=== PATIENT | female | born 1960 | race Caucasian/White ===

== ENCOUNTER 2017-04-28 20:16 | Inpatient (IN) | END 2017-05-03 13:30 | disposition home or self-care (01) | DRG 375 ==

== ENCOUNTER 2017-11-06 07:38 | Day surgery (SDC) | END 2017-11-06 14:45 | disposition home or self-care (01) ==

== ENCOUNTER 2018-09-24 07:05 | Inpatient (IN) | payer OTHER ==
[2018-09-24] VITALS (33 sets, daily range): BP systolic 111–157; BP diastolic 68–87; PULSE 59–95; RESP 11–20; Ht 165.1 cm; Wt 71.3 kg
[~2018-09-24] VITALS: Ht 165.1 cm; Wt 71.3 kg
[~2018-09-24 07:05] MED LIST: ATOR40TA68 PO; BISO5TAB21 PO; FER325 PO; OMEP40CA6 PO; SERT50TA6 PO
[2018-09-24] MEDS ORDERED: SOD CHLORIDE 0.9% 1,000 ML IV SCH (08:00)
[2018-09-24] MEDS ORDERED: CEFAZOLIN 2 GM/50 ML (PMX) 50 ML IVPB ONE (08:00)
[2018-09-24] MEDS ORDERED: METO10TA3 PO (08:08)
[2018-09-24] MEDS ORDERED: ROCURONIUM 50 MG INJ ONE (09:35)
[2018-09-24] MEDS ORDERED: PROPOFOL 20 ML ONE (09:35)
[2018-09-24] MEDS ORDERED: MIDAZOLAM 1 MG/ML 2 ML INJ ONE (09:35)
[2018-09-24] MEDS ORDERED: CEFAZOLIN 1 GM INJ ONE (09:35)
[2018-09-24] MEDS ORDERED: ONDANSETRON 4 MG INJ ONE (09:44)
[2018-09-24] MEDS ORDERED: KETOROLAC 30 MG INJ ONE (09:44)
[2018-09-24] MEDS ORDERED: BUPIVACAINE 0.25% (MPF) 30 ML INJ ONE (09:55)
--- NOTE | 2018-09-24 10:11 | PREAC ---
Date/Time of Note Date/Time of Note DATE: 09/24/18 TIME: 10:08 Anesthesia Eval and Record Evaluation Time Pre-Procedure Interview DATE: 09/24/18 TIME: 10:08 Age 57 Sex female NPO: 8 hrs Preoperative diagnosis Thyroid Papillary CA Planned procedure Thyroidectomy Past Medical History Past Medical History: Includes Cardio: HTN, Dyslipidemia GI: Obesity, Other (S/P Gastrectomy for Gastric CA) Psych: Depression Surgery & Anesthesia Issues No known issue Meds Anticoagulation: No Beta Arely within 24 hr: No Reason Beta Arely not given: Pt. not on B-Arely Reported Medications Metoclopramide Hcl* (Metoclopramide Hcl*) 10 Mg Tablet, 10 MG PO Q6H PRN for NAUSEA AND OR VOMITING, TAB 09/24/18 Sertraline Hcl* (Sertraline Hcl*) 50 Mg Tablet, 50 MG PO DAILY, #30 TAB 11/06/17 Atorvastatin* (Atorvastatin*) 40 Mg Tablet, 40 MG PO QHS, #30 TAB 11/06/17 Ferrous Sulfate* (Ferrous Sulfate*) 325 Mg Tabec, 325 MG PO BID, TAB 11/06/17 Discontinued Reported Medications Omeprazole* (Omeprazole*) 40 Mg Capsule.dr, 40 MG PO DAILY, #30 CAP 11/06/17 Bisoprolol Fumarate* (Bisoprolol Fumarate*) 5 Mg Tablet, 5 MG PO DAILY, TAB 11/06/17 Current Medications Sodium Chloride 1,000 ml @ 75 mls/hr [id number] IV Last administered on 09/24/18at 08:41; Admin Dose 75 MLS/HR; Start 09/24/18 at 08:00; Stop 09/24/18 at 21:19 Meds reviewed: Yes Allergies Coded Allergies: Sulfa (Sulfonamide Antibiotics) (Verified Allergy, Unknown, 09/24/18) Allergies Reviewed: Yes Labs/Studies Labs Reviewed: Reviewed by anesthesiologist test: N/A Pre-procedure Exam Last vitals Vital Signs Date Temp Pulse Resp B/P (MAP) Pulse Ox O2 O2 Flow FiO2 Time Delivery Rate 09/24/18 97.3 80 16 144/81 96 Room Air 08:35 (102) Airway: Adequate mouth opening Mallampati: Mallampati II Teeth: Normal Lung: Normal Heart: Normal ASA Physical Status ASA physical status: 3 Emergency: None Planned Anesthetic General/MAC: ETT Pre-operative Attestations Prior to commencing anesthesia and surgery, the patient was re-evaluated, there was verification of: *The patient's identity *The results of appropriate recent lab work and preoperative vital signs *The above evaluation not changing prior to induction *Anesthetic plan, risk benefits, alternative and complications discussed with patient/family; questions answered; patient/family understands, accepts and wishes to proceed. SHARIF HYDE MD Sep 24, 2018 10:11
[2018-09-24] MEDS ORDERED: FENTAnyl 50 MCG/ML VIAL IV PRN (10:30)
[2018-09-24] MEDS ORDERED: ONDANSETRON 4 MG INJ IV PRN ×2 (10:30→23:30)
[2018-09-24] MEDS ORDERED: HYDROmorphONE 1 MG/5 ML IV SYRINGE IV PRN (10:30)
[2018-09-24] MEDS ORDERED: NEOSTIGMINE 3 MG/3 ML SYRINGE ONE (11:30)
[2018-09-24] MEDS ORDERED: GLYCOPYRROLATE 0.4 MG INJ ONE (11:30)
--- NOTE | 2018-09-24 11:51 | OPR ---
Date/Time of Note Date/Time of Note DATE: 09/24/18 TIME: 11:47 Operative Report Procedure Date: Sep 24, 2018 Preoperative Diagnosis papillary thyroid cancer Postoperative Diagnosis same Operation/Procedure Performed 1. total thyroidectomy 2. localized adjacent tissue transfer with the use of skin flaps 16 sq cm defect of anterior neck 3. therapeutic injection of subcutaneous local anesthesia Surgeon see signature line Business Analyst Project Manager Jimmy Hunter Anesthesia Type: general Estimated Blood Loss: 10 - 50 ml's Transfusion none Specimen total thyroid markings double short right upper double long right lower single short left upper single long left lower Grafts/Implants none Complications none Pt Condition Post Procedure: stable Indications This is a 57-year-old female with an unfortunate history of gastric cancer. She underwent treatment and chemotherapy. She was diagnosed recently with papillary thyroid cancer. She is here for a total thyroidectomy. Risks alternatives benefits and personal were discussed the patient. Potential complications including but not limited to bleeding infection recurrent laryngeal nerve injury and possible need for additional operations were discussed the patient. Patient expressed understanding and consents to the operation. Procedure Description Patient is taken to the OR and prepped and draped in usual sterile fashion. Surgical time was performed. IV antibiotics given. Collar incision was made to 15 blade. Dissection with cautery was carried down through the platysmal layer. Superior inferior platysmal flaps are created and raised. Escoto retractors were placed. Midline strap muscles were divided. Attention was then paid to the left thyroid. The superior and inferior poles were mobilized. The middle thyroidal vein was ligated with handheld LigaSure. Further dissection was carried laterally. Careful attention was paid to the area of the recurrent laryngeal nerve in this area was dissected meticulously to preserve the nerve. Attention was then paid to the right thyroid. The right thyroid had the thyroid nodule that was firm and had been biopsied with biopsy proven papillary thyroid cancer. This area was adhesive to parts of the strap muscle and was very adhesive to the surrounding tissues. Careful dissection was made in the middle thyroidal vein was divided with handheld LigaSure. The superior and inferior poles were also further mobilized. Further careful dissection was made to keep the recurrent laryngeal nerve out of harm's way. There is a dense amount of adhesions around the nodule. The retro-is small region was then dissected with tonsils. The thyroid was then mobilized off the trachea. Surgical markings of double short right superior double long right inferior single short left upper single long left lower markings were placed. The specimen was sent. The surgical site was irrigated and a Valsalva maneuver of 40 cm of water was held. There is no evidence of any bleeding. All irrigation was suctioned out. The strap muscles were reapproximated with interrupted 3-0 Vicryl. And the platysmal layer was closed with localization just transfer with these of skin flaps. Multilayer closed with interrupted 3-0 Vicryl the platysmal layer and the skin was closed with a running 4-0 Monocryl. Therapeutic subcutaneous local anesthesia was injected at the incision site. Steri-Strips and dry dressings were applied. Jassi NAGEL Sep 24, 2018 11:51
--- NOTE | 2018-09-24 11:52 | PAC ---
Date/Time of Note Date/Time of Note DATE: 09/24/18 TIME: 11:52 Post-Anesthesia Notes Post-Anesthesia Note Last documented vital signs Vital Signs Date Temp Pulse Resp B/P (MAP) Pulse Ox O2 O2 Flow FiO2 Time Delivery Rate 09/24/18 97.3 80 16 144/81 96 Room Air 08:35 (102) Activity: WNL Respiratory function: WNL Cardiovascular function: WNL Mental status: Baseline Pain reasonably controlled: Yes Hydration appropriate: Yes Nausea/Vomiting absent: Yes SHARIF HYDE MD Sep 24, 2018 11:52
[2018-09-24] MEDS ORDERED: morphine 2 MG INJ IV PRN (12:00)
[2018-09-24] MEDS ORDERED: CEFAZOLIN 2 GM/50 ML (PMX) 50 ML IVPB SCH (12:00)
[2018-09-24] MEDS ORDERED: HYDROCODONE/APAP (5/325) TAB PO PRN (12:00)
[2018-09-24] MEDS: SOD CHLORIDE 0.9% 1,000 ML IV SCH ×3 (14:02→23:44)
--- NOTE | 2018-09-24 17:09 | HP ---
Date/Time of Note Date/Time of Note DATE: 09/24/18 TIME: 17:08 Assessment/Plan VTE Prophylaxis Risk score (from Ns)>0 risk: 3 SCD applied (from Ns): Yes Pharmacological prophylaxis: NA/contraindicated Pharm contraindication: surgical contra Lines/Catheters IV Catheter Type (from Nrsg): Peripheral IV Central line still needed: Yes Assessment/Plan Assessment/Plan - Papillary thyroid cancer, s/p total thyroidectomy by Dr. Guerrero. Continue IV fluids and postoperative antibiotics. Monitor calcium level. Advance diet per surgery. Continue [place] and morphine as needed for pain and Zofran as needed for nausea. -Hyperlipidemia, continue statin -Depression, continue Zoloft -Iron deficiency anemia, continue iron supplement -Hypertension, patient currently is normotensive, continue hydralazine as needed -History of gastric adenocarcinoma status post total gastrectomy and chemotherapy Further recommendations based on clinical course. Plan of care discussed with Dr. Harper. Result Diagram: 09/24/18 1327 09/24/18 1327 Results 24hrs Laboratory Tests Test 09/24/18 13:27 White Blood Count 7.8 # Red Blood Count 3.79 L Hemoglobin 11.2 L Hematocrit 33.5 L Mean Corpuscular Volume 88.4 Mean Corpuscular Hemoglobin 29.6 # Mean Corpuscular Hemoglobin Concent 33.4 Red Cell Distribution Width 12.1 # Platelet Count 164 # Mean Platelet Volume 9.3 Immature Granulocytes % 0.300 Neutrophils % 78.8 H Lymphocytes % 15.6 Monocytes % 4.3 Eosinophils % 0.5 Basophils % 0.5 Nucleated Red Blood Cells % 0.0 Immature Granulocytes # 0.020 Neutrophils # 6.2 Lymphocytes # 1.2 Monocytes # 0.3 Eosinophils # 0.0 Basophils # 0.0 Nucleated Red Blood Cells # 0.0 Sodium Level 142 Potassium Level 4.4 Chloride Level 111 H Carbon Dioxide Level 23 Anion Gap 8 Blood Urea Nitrogen 18 Creatinine 0.60 Est Glomerular Filtrat Rate mL/min > 60 Glucose Level 102 Calcium Level 9.0 Total Bilirubin 0.2 Direct Bilirubin 0.00 Indirect Bilirubin 0.2 Aspartate Amino Transf (AST/SGOT) 36 Alanine Aminotransferase (ALT/SGPT) 41 Alkaline Phosphatase 83 Total Protein 6.9 Albumin 4.0 Globulin 2.90 Albumin/Globulin Ratio 1.37 HPI/ROS Admit Date/Time Admit Date/Time Sep 24, 2018 at 11:47 Hx of Present Illness The patient is a 57-year-old female with history of gastric adenocarcinoma status post total gastrectomy in January [address] Hurt at [facility]. Patient underwent chemotherapy last treatment in March [address] Almodovar. Further oncology evaluation revealed papillary thyroid carcinoma. Patient was brought to the hospital today and underwent total thyroidectomy by Dr. Guerrero. Postoperatively patient experiencing moderate pain and patient is admitted for further evaluation and management. ROS 12 point review of system is negative except for what mentioned in HPI PMH/Family/Social Past Medical History Medical History: cancer (Gastric adenocarcinoma), high cholesterol, hypertension, other (Depression, iron deficiency anemia ) Medications Current Medications Sodium Chloride 1,000 ml @ 75 mls/hr [id number] IV Last administered on 09/24/18at 08:41; Admin Dose 75 MLS/HR; Start 09/24/18 at 08:00; Stop 09/24/18 at 21:19 Hydromorphone HCl (Dilaudid) 0.4 mg PACU PRN IV MOD PAIN 4-6; Start 09/24/18 at 10:30; Stop 09/24/18 at 18:00 Fentanyl (Sublimaze) 25 mcg PACU ORDER PRN IV MILD PAIN 1-3; Start 09/24/18 at 10:30; Stop 09/24/18 at 18:00 Ondansetron HCl (Zofran Inj) 4 mg PACU ORDER PRN IV NAUSEA/VOMITING; Start 09/24/18 at 10:30; Stop 09/24/18 at 18:00 Morphine Sulfate (morphine) 2 mg Q2H PRN IV PAIN LEVEL 6-10; Start 09/24/18 at 12:00 Acetaminophen/ Hydrocodone Bitart ([place] (5/325)) 1 tab Q6H PRN PO PAIN LEVEL 6-10; Start 09/24/18 at 12:00 Sodium Chloride 1,000 ml @ 100 mls/hr Q10H IV Last administered on 09/24/18at 14:02; Admin Dose 100 MLS/HR; Start 09/24/18 at 11:45 Cefazolin Sodium/ Dextrose 50 ml @ 100 mls/hr Q8H IVPB ; Start 09/24/18 at 17 :30 Coded Allergies: Sulfa (Sulfonamide Antibiotics) (Verified Allergy, Unknown, 09/24/18) Past Surgical History Past Surgical Hx: other (Status post total gastrectomy in January [address] Blu Loredo) Family History Significant Family History: cancer (Lung cancer in patients father) Social History Alcohol Use: none Smoking Status: Never smoker Drug Use: none Exam/Review of Systems Vital Signs Vitals Vital Signs Date Temp Pulse Resp B/P (MAP) Pulse Ox O2 O2 Flow FiO2 Time Delivery Rate 09/24/18 98.2 61 18 111/74 95 Nasal 2.0 15:45 (86) Cannula Exam Constitutional: alert, oriented Head: normocephalic Eyes: nl conjunctiva ENMT: nl external ears & nose Neck: other (Status post thyroidectomy) Respiratory: clear to auscultation Cardiovascular: nl pulses Gastrointestinal: soft, non-tender Musculoskeletal: nl extremities to inspection Extremities: normal pulses PANCHO BERMEO Sep 24, 2018 17:09
[2018-09-24] MEDS: CEFAZOLIN 2 GM/50 ML (PMX) 50 ML IVPB SCH (17:25)
[2018-09-24] MEDS ORDERED: VECURONIUM BROMIDE 20 MG VIAL IV ONE (17:59)
[2018-09-24] MEDS ORDERED: KETOROLAC 30 MG INJ IV PRN (22:30)
[2018-09-24] MEDS ORDERED: ACETAMINOPHEN 1000MG/100ML IV 100 ML IVPB SCH (22:30)
[2018-09-24] MEDS ORDERED: hydrALAzine 20 MG INJ IV PRN (23:30)
[2018-09-24] MEDS ORDERED: METOCLOPRAMIDE 10 MG TAB PO PRN (23:30)
[2018-09-25] MEDS: CEFAZOLIN 2 GM/50 ML (PMX) 50 ML IVPB SCH ×2 (01:42→09:53)
--- NOTE | 2018-09-25 03:04 | PN ---
Date/Time of Note Date/Time of Note DATE: 09/25/18 TIME: 03:04 Assessment/Plan VTE Prophylaxis Risk score (from Nsg)>0 risk: 3 SCD applied (from Nsg): Yes Lines/Catheters IV Catheter Type (from Nrsg): Peripheral IV Assessment/Plan Assessment/Plan - Papillary thyroid cancer, s/p total thyroidectomy by Dr. Guerrero. Continue IV fluids and postoperative antibiotics. Monitor calcium level. Advance diet per surgery. Continue [place] and morphine as needed for pain and Zofran as needed for nausea. -Hyperlipidemia, continue statin -Depression, continue Zoloft -Iron deficiency anemia, continue iron supplement -Hypertension, patient currently is normotensive, continue hydralazine as needed -History of gastric adenocarcinoma status post total gastrectomy and chemotherapy Further recommendations based on clinical course. Plan of care discussed with Dr. Harper. Result Diagram: 09/24/18 1327 09/24/18 1327 Results 24hrs Laboratory Tests Test 09/24/18 13:27 White Blood Count 7.8 # Red Blood Count 3.79 L Hemoglobin 11.2 L Hematocrit 33.5 L Mean Corpuscular Volume 88.4 Mean Corpuscular Hemoglobin 29.6 # Mean Corpuscular Hemoglobin Concent 33.4 Red Cell Distribution Width 12.1 # Platelet Count 164 # Mean Platelet Volume 9.3 Immature Granulocytes % 0.300 Neutrophils % 78.8 H Lymphocytes % 15.6 Monocytes % 4.3 Eosinophils % 0.5 Basophils % 0.5 Nucleated Red Blood Cells % 0.0 Immature Granulocytes # 0.020 Neutrophils # 6.2 Lymphocytes # 1.2 Monocytes # 0.3 Eosinophils # 0.0 Basophils # 0.0 Nucleated Red Blood Cells # 0.0 Sodium Level 142 Potassium Level 4.4 Chloride Level 111 H Carbon Dioxide Level 23 Anion Gap 8 Blood Urea Nitrogen 18 Creatinine 0.60 Est Glomerular Filtrat Rate mL/min > 60 Glucose Level 102 Calcium Level 9.0 Total Bilirubin 0.2 Direct Bilirubin 0.00 Indirect Bilirubin 0.2 Aspartate Amino Transf (AST/SGOT) 36 Alanine Aminotransferase (ALT/SGPT) 41 Alkaline Phosphatase 83 Total Protein 6.9 Albumin 4.0 Globulin 2.90 Albumin/Globulin Ratio 1.37 Subjective 24 Hr Interval Summary Free Text/Dictation bp stable Exam/Review of Systems Exam Vitals Vital Signs Date Temp Pulse Resp B/P (MAP) Pulse Ox O2 O2 Flow FiO2 Time Delivery Rate 09/24/18 98.2 68 17 124/70 99 23:58 (88) 09/24/18 Nasal 20:37 Cannula 09/24/18 2.0 20:02 Intake and Output 09/24/18 09/24/18 09/25/18 1515:00 23:00 07:00 IntakeIntake Total 1200 ml 550 ml 1100 ml OutputOutput Total 10 ml BalanceBalance 1190 ml 550 ml 1100 ml Results Results 24hrs Laboratory Tests Test 09/24/18 13:27 White Blood Count 7.8 # Red Blood Count 3.79 L Hemoglobin 11.2 L Hematocrit 33.5 L Mean Corpuscular Volume 88.4 Mean Corpuscular Hemoglobin 29.6 # Mean Corpuscular Hemoglobin Concent 33.4 Red Cell Distribution Width 12.1 # Platelet Count 164 # Mean Platelet Volume 9.3 Immature Granulocytes % 0.300 Neutrophils % 78.8 H Lymphocytes % 15.6 Monocytes % 4.3 Eosinophils % 0.5 Basophils % 0.5 Nucleated Red Blood Cells % 0.0 Immature Granulocytes # 0.020 Neutrophils # 6.2 Lymphocytes # 1.2 Monocytes # 0.3 Eosinophils # 0.0 Basophils # 0.0 Nucleated Red Blood Cells # 0.0 Sodium Level 142 Potassium Level 4.4 Chloride Level 111 H Carbon Dioxide Level 23 Anion Gap 8 Blood Urea Nitrogen 18 Creatinine 0.60 Est Glomerular Filtrat Rate mL/min > 60 Glucose Level 102 Calcium Level 9.0 Total Bilirubin 0.2 Direct Bilirubin 0.00 Indirect Bilirubin 0.2 Aspartate Amino Transf (AST/SGOT) 36 Alanine Aminotransferase (ALT/SGPT) 41 Alkaline Phosphatase 83 Total Protein 6.9 Albumin 4.0 Globulin 2.90 Albumin/Globulin Ratio 1.37 Medications Medication Current Medications Morphine Sulfate (morphine) 2 mg Q2H PRN IV PAIN LEVEL 6-10 Last administered on 09/24/18at 22:52; Admin Dose 2 MG; Start 09/24/18 at 12:00 Acetaminophen/ Hydrocodone Bitart ([place] (5/325)) 1 tab Q6H PRN PO PAIN LEVEL 6-10; Start 09/24/18 at 12:00 Sodium Chloride 1,000 ml @ 100 mls/hr Q10H IV Last administered on 09/24/18at 23:44; Admin Dose 100 MLS/HR; Start 09/24/18 at 11:45 Cefazolin Sodium/ Dextrose 50 ml @ 100 mls/hr Q8H IVPB Last administered on 09/25/18at 01:42; Admin Dose 100 MLS/HR; Start 09/24/18 at 17:30 Ketorolac Tromethamine (Toradol) 30 mg Q6H PRN IV PAIN LEVEL 1-3; Start 09/24/18 at 22:30; Stop 09/27/18 at 22:29 Acetaminophen 100 ml @ 400 mls/hr Q6H PRN IVPB PAIN; Start 09/25/18 at 04:30; Stop 09/26/18 at 04:29 Atorvastatin Calcium (Lipitor) 40 mg QHS PO ; Start 09/25/18 at 21:00 Ferrous Sulfate (Ferrous Sulfate (Ec)) 325 mg BID PO ; Start 09/25/18 at 09:00 Metoclopramide HCl (Reglan) 10 mg Q6H PRN PO NAUSEA AND/OR VOMITING Last administered on 09/24/18at 23:27; Admin Dose 10 MG; Start 09/24/18 at 23:30 Sertraline HCl (Zoloft) 50 mg DAILY PO ; Start 09/25/18 at 09:00 Ondansetron HCl (Zofran Inj) 4 mg Q6H PRN IV NAUSEA AND/OR VOMITING; Start 09/24/18 at 23:30 Hydralazine HCl (Apresoline) 10 mg Q6H PRN IV SBP>170; Start 09/24/18 at 23:30 JANINE LAWTON Sep 25, 2018 03:04
[2018-09-25] MEDS ORDERED: ACETAMINOPHEN 1000MG/100ML IV 100 ML IVPB PRN (04:30)
[2018-09-25 07:56] VITALS: BP 137/78; PULSE 87; RESP 18
[2018-09-25] MEDS ORDERED: SERTRALINE 50 MG TAB PO SCH (09:00)
[2018-09-25] MEDS ORDERED: FERROUS SULFATE (EC) 325 MG TAB PO SCH (09:00)
--- NOTE | 2018-09-25 09:03 | PN ---
Date/Time of Note Date/Time of Note DATE: 09/25/18 TIME: 09:02 Assessment/Plan VTE Prophylaxis Risk score (from [facility])>0 risk: 3 SCD applied (from Ns): Yes Pharmacological prophylaxis: other Lines/Catheters IV C[facility]ter Type (from [facility]): Peripheral IV Assessment/Plan Assessment/Plan s/p total thyroidectomy for papillary thyroid cancer doing well dc home today Result Diagram: 09/25/18 0435 09/25/18 0435 Results 24hrs Laboratory Tests Test 09/24/18 13:27 09/25/18 04:34 09/25/18 04:35 09/25/18 07:33 White Blood Count 7.8 # 9.2 Red Blood Count 3.79 L 3.96 L Hemoglobin 11.2 L 11.7 L Hematocrit 33.5 L 34.9 L Mean Corpuscular 88.4 88.1 Volume Mean Corpuscular 29.6 # 29.5 Hemoglobin Mean Corpuscular 33.4 33.5 Hemoglobin Concent Red Cell 12.1 # 12.2 Distribution Width Platelet Count 164 # 172 Mean Platelet 9.3 10.2 Volume Immature 0.300 0.200 Granulocytes % Neutrophils % 78.8 H 81.2 H Lymphocytes % 15.6 12.9 L Monocytes % 4.3 4.7 Eosinophils % 0.5 0.7 Basophils % 0.5 0.3 Nucleated Red 0.0 0.0 Blood Cells % Immature 0.020 0.020 Granulocytes # Neutrophils # 6.2 7.4 Lymphocytes # 1.2 1.2 Monocytes # 0.3 0.4 Eosinophils # 0.0 0.1 Basophils # 0.0 0.0 Nucleated Red 0.0 0.0 Blood Cells # Sodium Level 142 141 Potassium Level 4.4 4.0 Chloride Level 111 H 109 Carbon Dioxide 23 24 Level Anion Gap 8 8 Blood Urea 18 15 Nitrogen Creatinine 0.60 0.56 Est Glomerular > 60 > 60 Filtrat Rate mL/min Glucose Level 102 113 Calcium Level 9.0 8.5 Total Bilirubin 0.2 0.3 Direct Bilirubin 0.00 0.00 Indirect Bilirubin 0.2 0.3 Aspartate Amino 36 25 Transf (AST/SGOT) Alanine 41 27 Aminotransferase ( ALT/SGPT) Alkaline 83 85 Phosphatase Total Protein 6.9 6.7 Albumin 4.0 3.8 Globulin 2.90 2.90 Albumin/Globulin 1.37 1.31 Ratio Ionized Calcium 1.2 (Measured) Lab Scanned Report REFERENCE LAB Subjective 24 Hr Interval Summary Free Text/Dictation doing well, voice normal Exam/Review of Systems Exam Vitals Vital Signs Date Temp Pulse Resp B/P (MAP) Pulse Ox O2 O2 Flow FiO2 Time Delivery Rate 09/25/18 98.2 87 18 137/78 97 Room Air 07:56 (97) 09/24/18 2.0 20:02 Intake and Output 09/24/18 09/24/18 09/25/18 1515:00 23:00 07:00 IntakeIntake Total 1200 ml 550 ml 1625 ml OutputOutput Total 10 ml BalanceBalance 1190 ml 550 ml 1625 ml Exam c/d/i Results Results 24hrs Laboratory Tests Test 09/24/18 13:27 09/25/18 04:34 09/25/18 04:35 09/25/18 07:33 White Blood Count 7.8 # 9.2 Red Blood Count 3.79 L 3.96 L Hemoglobin 11.2 L 11.7 L Hematocrit 33.5 L 34.9 L Mean Corpuscular 88.4 88.1 Volume Mean Corpuscular 29.6 # 29.5 Hemoglobin Mean Corpuscular 33.4 33.5 Hemoglobin Concent Red Cell 12.1 # 12.2 Distribution Width Platelet Count 164 # 172 Mean Platelet 9.3 10.2 Volume Immature 0.300 0.200 Granulocytes % Neutrophils % 78.8 H 81.2 H Lymphocytes % 15.6 12.9 L Monocytes % 4.3 4.7 Eosinophils % 0.5 0.7 Basophils % 0.5 0.3 Nucleated Red 0.0 0.0 Blood Cells % Immature 0.020 0.020 Granulocytes # Neutrophils # 6.2 7.4 Lymphocytes # 1.2 1.2 Monocytes # 0.3 0.4 Eosinophils # 0.0 0.1 Basophils # 0.0 0.0 Nucleated Red 0.0 0.0 Blood Cells # Sodium Level 142 141 Potassium Level 4.4 4.0 Chloride Level 111 H 109 Carbon Dioxide 23 24 Level Anion Gap 8 8 Blood Urea 18 15 Nitrogen Creatinine 0.60 0.56 Est Glomerular > 60 > 60 Filtrat Rate mL/min Glucose Level 102 113 Calcium Level 9.0 8.5 Total Bilirubin 0.2 0.3 Direct Bilirubin 0.00 0.00 Indirect Bilirubin 0.2 0.3 Aspartate Amino 36 25 Transf (AST/SGOT) Alanine 41 27 Aminotransferase ( ALT/SGPT) Alkaline 83 85 Phosphatase Total Protein 6.9 6.7 Albumin 4.0 3.8 Globulin 2.90 2.90 Albumin/Globulin 1.37 1.31 Ratio Ionized Calcium 1.2 (Measured) Lab Scanned Report REFERENCE LAB Medications Medication Current Medications Morphine Sulfate (morphine) 2 mg Q2H PRN IV PAIN LEVEL 6-10 Last administered on 09/24/18at 22:52; Admin Dose 2 MG; Start 09/24/18 at 12:00 Acetaminophen/ Hydrocodone Bitart ([place] (5/325)) 1 tab Q6H PRN PO PAIN LEVEL 6-10; Start 09/24/18 at 12:00 Sodium Chloride 1,000 ml @ 100 mls/hr Q10H IV Last administered on 09/24/18at 23:44; Admin Dose 100 MLS/HR; Start 09/24/18 at 11:45 Cefazolin Sodium/ Dextrose 50 ml @ 100 mls/hr Q8H IVPB Last administered on 09/25/18 01:42; Admin Dose 100 MLS/HR; Start 09/24/18 at 17:30 Ketorolac Tromethamine (Toradol) 30 mg Q6H PRN IV PAIN LEVEL 1-3; Start 09/24/18 at 22:30; Stop 09/27/18 at 22:29 Acetaminophen 100 ml @ 400 mls/hr Q6H PRN IVPB PAIN; Start 09/25/18 at 04:30; Stop 09/26/18 at 04:29 Atorvastatin Calcium (Lipitor) 40 mg QHS PO ; Start 09/25/18 at 21:00 Ferrous Sulfate (Ferrous Sulfate (Ec)) 325 mg BID PO Last administered on 09/25/18 08:36; Admin Dose 325 MG; Start 09/25/18 at 09:00 Metoclopramide HCl (Reglan) 10 mg Q6H PRN PO NAUSEA AND/OR VOMITING Last administered on 09/24/18at 23:27; Admin Dose 10 MG; Start 09/24/18 at 23:30 Sertraline HCl (Zoloft) 50 mg DAILY PO Last administered on 09/25/18at 08:36; Admin Dose 50 MG; Start 09/25/18 at 09:00 Ondansetron HCl (Zofran Inj) 4 mg Q6H PRN IV NAUSEA AND/OR VOMITING; Start 09/24/18 at 23:30 Hydralazine HCl (Apresoline) 10 mg Q6H PRN IV SBP>170; Start 09/24/18 at 23:30 Jassi NAGEL Sep 25, 2018 09:03
[2018-09-25 14:54] VITALS: BP 130/87; PULSE 89; RESP 18
[2018-09-25] MEDS ORDERED: ATORVASTATIN 40 MG TAB PO SCH (21:00)
== END 2018-09-25 18:00 | disposition home or self-care (01) | DRG 627 ==
LOC: SDS 07:05 → REC 11:47 → SDS 11:47 → MS1 13:24
PROVIDERS: ADMIT Surgery; ATTEND Surgery
PROC: 0GTK0ZZ Resection of Thyroid Gland, Open Approach (ICD-10-PCS; principal; 2018-09-24 10:00)
DX: C73 Malignant neoplasm of thyroid gland (principal); F32.9 Major depressive disorder, single episode, unspecified; D50.9 Iron deficiency anemia, unspecified; I10 Essential (primary) hypertension; Z85.028 Personal history of other malignant neoplasm of stomach
CPT/HCPCS: 80048; 80053; 82330; 85025; 88307; J0690; J1885; J2250; J2270; J2405; J2710; J3010; J3490; J7030

== ENCOUNTER → 2018-12-10 | Outpatient (CLI) | payer OTHER ==
[~2018-12-10] MED LIST changes: -BISO5TAB21 PO; +METO10TA3 PO; -OMEP40CA6 PO
== END | disposition home or self-care (01) ==
LOC: NUC 13:21
PROVIDERS: ATTEND Specialist
DX: C73 Malignant neoplasm of thyroid gland (principal)
CPT/HCPCS: 79005; A9517

== ENCOUNTER → 2018-12-17 | Outpatient (CLI) | payer OTHER | END | disposition home or self-care (01) | LOC: NUC 14:12 | PROVIDERS: ATTEND Specialist | DX: C73 Malignant neoplasm of thyroid gland (principal) | CPT/HCPCS: 78018 ==